=== PATIENT | male | born 1945 | race Caucasian/White ===

== ENCOUNTER 2024-01-12 12:40 | Emergency (ER) | payer MEDICARE, OTHER ==
--- NOTE | 2024-01-12 14:54 | ED Physician Documentation ---
PD HPI UPPER EXT INJURY - Stated complaint Stated Complaint: CRAB PINCH - Chief complaint Chief Complaint: Laceration - History obtained from History obtained from: Patient - History of Present Illness Location: Right, Finger (thumb pad) Type of injury: Laceration (pinched by a crab with laceration to thumb pad. Bleeding controlled with direct pressure but still mild without pressure.) Timing - onset: Today Timing - details: Abrupt onset Associated symptoms: No: Numbness, Tingling PD PAST MEDICAL HISTORY - Past Medical History Past Medical History: No - Past Surgical History Past Surgical History: No - Present Medications Home Medications: Ambulatory Orders Medication Instructions Recorded Confirmed Alendronate [Fosamax] 1 tab PO DAILY 01/12/24 01/12/24 Aspirin [[place] Aspirin] 1 tab PO DAILY 01/12/24 01/12/24 Atorvastatin [Lipitor] 1 tab PO DAILY 01/12/24 01/12/24 Tamsulosin HCl [Flomax] 1 tab PO DAILY 01/12/24 01/12/24 - Allergies Allergies/Adverse Reactions: Allergies Allergy/AdvReac Type Severity Reaction Status Date / Time No Known Drug Allergies Allergy Verified 01/12/24 13:22 - Social History Does the pt smoke?: No Smoking Status: Never smoker Does the pt drink ETOH?: No Does the pt have substance abuse?: No - Immunizations Immunizations are current?: Yes PD ED PE NORMAL - Vitals Vital signs reviewed: Yes - General General: Alert and oriented X 3, Well developed/nourished - Derm Derm: Normal color, Warm and dry - Extremities Extremities: Other (right thumb with 1.3 cm laceration at palmar fat pad distally. Not across joint. No FB. down to fatty tissue and mild bleeding still. Most approriate would be suturing. ) - Neuro Neuro: No motor deficit, No sensory deficit Results - Vitals Vitals: Oxygen O2 Source Room air Procedures - Laceration (location) right thumb Length in cm: 1.3 Wound type: Linear, Into subcut fat, Clean Neurovascular status: Sensory intact, Motor intact Tendon involvement: Tendon intact Wound preparation: Wound explored, To the base, Other (cleansed with tap water.) Skin layer closure: Nylon, Running, Size #-0 - enter number (4) Other: Patient tolerated well, No complications, Neurovascular intact, Dressing applied, Tetanus UTD PD Medical Decision Making - ED course Complexity details: considered differential (lac to thumb pad distally with open to fatty tissue and still mild bleeding. Most approirate for suturing. Pt in agreement. Crab claw injury but I feel low risk for infection given ability to clean it out/etc. ), d/w patient Departure - Departure Disposition: 01 Home, Self Care Clinical Impression: Thumb laceration Condition: Stable Record reviewed to determine appropriate education?: Yes Instructions: ED Laceration Hand Comments: It is okay to wash and shower. Clean off the wound twice a day with soap and water, or peroxide and water. Apply some antibiotic ointment to it to keep it moist. Also to watch for signs of infection such as purulence, redness or increasing pain. Return to your primary care or the ER at the specified time for suture removal. Suture removal 7 to 8 days Activity and use as tolerated. Forms: PCP List Discharge Date/Time: 01/12/24 15:38
[2024-01-12 15:40] VITALS: BP 124/80; O2SAT 100
== END 2024-01-12 15:38 | disposition home or self-care (01) ==
LOC: ED 12:40
DX: S61.011A Laceration without foreign body of right thumb without damage to nail, initial encounter (principal); W23.0XXA Caught, crushed, jammed, or pinched between moving objects, initial encounter
CPT/HCPCS: 12001; 99281